=== PATIENT | female | born 1980 | race Caucasian/White ===

== ENCOUNTER → 2016-12-01 | Day surgery (SDC) | payer OTHER ==
[~2016-12-01] VITALS: Ht 172.7 cm; Wt 83.9 kg
[~2016-12-01] MED LIST: Depo-Medrol 80mg Vial IARTIC ONE; MULTIVITAMINS1 EAC2 ORAL; ZYRTEC10 MG ORAL
[2016-12-01 08:31] VITALS: BP 137/95
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
--- NOTE | 2016-12-01 08:44 | Pre-Procedure Note/Attestation ---
Pre-Procedure Note/Attestation Complete Prior to Procedure Planned Procedure: right Procedure Narrative: L4-L5 and L5-S1 intra-articular facet injections under fluoroscopic guidance. Indications for Procedure Pre-Operative Diagnosis: Lumbosacral spondylosis Attestation I attest that I discussed the nature of the procedure; its benefits; risks and complications; and alternatives (and the risks and benefits of such alternatives ), prior to the procedure, with the patient (or the patient's legal medical office representative). I attest that, if there was a reasonable possibility of needing a blood transfusion, the patient (or the patient's legal medical office representative) was given the [facility] standardized written summary, pursuant to the [employer] [place] Blood Safety Act ([place] Health and Safety Code # 1645, as amended). I attest that I re-evaluated the patient just prior to the surgery and that there has been no change in the patient's H&P, except as documented below: JOSE ROY M.D. Dec 01, 2016 08:44
[2016-12-01 09:10] VITALS: BP 142/90
--- NOTE | 2016-12-01 09:13 | Brief Operative Note ---
Immediate Post Operative Note Operative Note Chief Complaint: Right lower back pain Pre-op Diagnosis: Lumbosacral spondylosis Procedure: Right L4-L5 and L5-S1 intra articular facet injections under fluoroscopic guidance. Post-op Diagnosis: Lumbosacral spondylosis Post-op Diagnosis: same as pre-op Findings: consistent w/pre-op dx studies Surgeon: Jose Rueda MD Tool Design Checker: None Additional Surgeons: None Anesthesiologist: None Anesthesia: local Specimen: none Complications: none Condition: stable Fluids: None Estimated Blood Loss: none Drains: none Packing: None Tourniquet time: 0 - min Implant(s) used?: JOSE Ojeda M.D. Dec 01, 2016 09:13
--- NOTE | 2016-12-01 09:16 | Discharge Summary ---
Discharge Summary Hospital Course Date of Admission 12/01/2016 Date of Discharge 12/01/2016 Admitting Diagnosis Lumbosacral spondylosis Reason for Hospitalization: short stay HPI Ibis Fletcher is a 36 year old female who was admitted on for Facet Pain Consultations none Procedures Right L4-L5 and L5-S1 intra-articular facet injections under fluoroscopic guidance. Hospital Course short stay Discharge Condition Upon Discharge: stable Discharge Disposition Patient was discharged to home. Discharge Diagnoses: (1) Lumbosacral spondylosis Discharge Instructions Discharge Instructions Follow up with: Dr. Jose Roy Diet: regular Activity: okay to shower For Surgical Patients Contact your physician for: bleeding, pain, tenderness, redness, swelling, yellowish discharge in the op. site JOSE ROY M.D. Dec 01, 2016 09:16
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
== END | disposition home or self-care (01) ==
LOC: SUR 08:07
DX: M47.897 Other spondylosis, lumbosacral region (principal)
CPT/HCPCS: 64493; 64494; 77003; 81025; J1040; Q9967; 64483; 64484